=== PATIENT | female | born 2000 | race Caucasian/White ===

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

== ENCOUNTER 2023-01-05 20:17 | Emergency (ER) | payer SELFPAY ==
[~2023-01-05] VITALS: Ht 160 cm; Wt 63.2 kg
[2023-01-05 20:30] VITALS: BP 128/90; PULSE 93; RESP 16; TEMP 98.3; O2SAT 100
== END 2023-01-05 23:00 | disposition left against medical advice (07) ==
LOC: ER 20:18
DX: G43.909 Migraine, unspecified, not intractable, without status migrainosus (principal); Z53.21 Procedure and treatment not carried out due to patient leaving prior to being seen by health care provider
CPT/HCPCS: 99281

== ENCOUNTER 2023-01-07 12:19 | Emergency (ER) | payer BC ==
[~2023-01-07] VITALS: Ht 160 cm; Wt 63.2 kg
[2023-01-07 13:56] LABS: BILIRUBIN,URINE NEGATIVE (Neg); CLARITY,URINE CLEAR (Clear); COLOR,URINE YELLOW (Yellow); GLUCOSE, URINE NEGATIVE (Neg); KETONES,URINE NEGATIVE (Neg); LEUKOCYTE ESTERASE ,URINE NEGATIVE (Neg); NITRITES, URINE NEGATIVE (Neg); OCCULT BLOOD,URINE NEGATIVE (Neg); PH,URINE 6.5 (4.8-8.0); PROTEIN,URINE NEGATIVE (Neg); UROBILINOGEN,URINE 0.2 E.U/dL (0.2-1.0)
[2023-01-07 14:00] LABS: UA COLLECTION TYPE CLN CATCH MIDSTREAM
[2023-01-07] MEDS ORDERED: ondansetron/PF 4mg/2ml inj IV ONE (19:05)
[2023-01-07] MEDS ORDERED: morphine 4 MG/ML inj SYRINge IV PRN (19:05)
[2023-01-07] MEDS ORDERED: normal saline 1000ML IV soln IVB ONE (19:05)
[2023-01-07 19:40] LABS: BASOPHILS % (AUTO) 0.7 % (0-1); EOSINOPHILS # (AUTO) 0.1 X10'3 (0-0.9); EOSINOPHILS % (AUTO) 2.3 % (0-6); HEMATOCRIT 39.6 % (35.0-45.0); HEMOGLOBIN 13.4 g/dl (12.0-16.0); LYMPHOCYTES # (AUTO) 2.2 X10'3 (1.1-4.8); LYMPHOCYTES % (AUTO) 34.8 % (21-51); MEAN CORPUSCULAR HEMOGLOBIN 29.8 PG (27.0-31.0); MEAN CORPUSCULAR HGB CONC 33.8 g/dL (33.0-36.5); MEAN CORPUSCULAR VOLUME 88.1 FL (78-98); MEAN PLATELET VOLUME 7.7 FL (7.4-10.4); MONOCYTES # (AUTO) 0.5 X10'3 (0-0.9); MONOCYTES % (AUTO) 7.5 % (2-12); NEUTROPHILS # (AUTO) 3.5 X10'3 (1.8-7.7); NEUTROPHILS % (AUTO) 54.7 % (42-75); PLATELET COUNT 235 X10'3 (140-440); RED CELL DISTRIBUTION WIDTH 13.1 % (11.5-14.5); WHITE BLOOD COUNT 6.4 X10'3 (4.5-11.0)
[2023-01-07 19:43] LABS: URINE HCG NEGATIVE (NEG)
[2023-01-07 19:55] VITALS: TEMP 98.8
--- NOTE | 2023-01-07 20:01 | NUR ---
TO IMAGING WITH TECH IN W/C
[2023-01-07 20:08] LABS: ALANINE AMINOTRANSFERASE 21 U/L (12-78); ALBUMIN 4.1 G/DL (3.4-5.0); ALBUMIN/GLOBULIN RATIO 1.2 (1.1-1.5); ALKALINE PHOSPHATASE 76 IU/L (46-116); ANION GAP 7 (8-16); ASPARTATE AMINO TRANSFERASE 20 U/L (10-37); BILIRUBIN,TOTAL 0.2 MG/DL (0.1-1.0); BLOOD UREA NITROGEN 9 MG/DL (7-18); BUN/CREATININE RATIO 15.8 (10.0-20.0); CALCIUM 9.2 MG/DL (8.5-10.1); CHLORIDE 103 MMOL/L (99-107); CREATININE 0.57 MG/DL (0.40-0.90); GLUCOSE 109 MG/DL (70-104); LIPASE 90 U/L (73-393); POTASSIUM 3.5 MMOL/L (3.5-5.1); SODIUM 138 MMOL/L (135-145); TOTAL CARBON DIOXIDE 27.7 MMOL/L (24-32); TOTAL PROTEIN 7.6 G/DL (6.4-8.2); eCRCL 127 ML/MIN; eGFR > 90 ML/MIN
[2023-01-07 20:47] VITALS: BP 124/84; PULSE 74; RESP 18; O2SAT 99
[2023-01-07] MEDS ORDERED: HYDR-3965 PO (21:35)
== END 2023-01-07 21:46 | disposition home or self-care (01) ==
LOC: ER 12:20
DX: R51.9 Headache, unspecified (principal); R10.9 Unspecified abdominal pain; K92.1 Melena
CPT/HCPCS: 36415; 70450; 74176; 80053; 81003; 81025; 83690; 84484; 85025; 96361; 96374; 96375; 99285; J2270; J2405; J7030